=== PATIENT | male | born 1955 | race Caucasian/White ===

== ENCOUNTER → 2016-10-07 | Outpatient (CLI) | payer BC ==
--- NOTE | 2016-10-08 09:04 | RADIOLOGY REPORT (SQ) ---
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 TECHNIQUE: Multiplanar imaging includes non-contrasted T1, T2, FLAIR, diffusion with ADC map and pos t gadolinium contrast T1 sequences. Thin sections through the pituitary fossa pre and post contrast. Images stored on PACS. CONTRAST TYPE AND DOSE: 20 mL Multihance. RENAL FUNCTION: GFR > 60. LIMITATIONS: None. FINDINGS: ANATOMY: No developmental anomalies. Normal vascular flow voids. CSF SPACES: Normal in size and contour. No hemorrhage. PITUITARY FOSSA: Pituitary gland is 12 mm transverse x 15 mm AP x 6 mm craniocaudad. There is a smal l 4 mm cyst along the inferior aspect of the pituitary gland, anterior lobe, along the floor of the s jong best shown on sagittal T2 image 6. Posterior pituitary bright spot is identified. Midline infu ndibulum. On the post contrasted images, no discrete pituitary solid mass is identified. CEREBRUM: Sulci and gyri normal in size and contour. Normal white matter signal on FLAIR imaging. No evidence of hemorrhage, mass, or extraaxial fluid collection. No abnormal enhancement post contrast. POSTERIOR FOSSA: No signal alteration. No hemorrhage. No edema, masses, or mass effect. Internal aud itory canals, cerebello-pontine angles, mastoids normal. No enhancing lesions. ORBITS: No masses. Globes normal. PARANASAL SINUSES: There is mucous membrane thickening and fluid in the bilateral frontal sinuses and bilateral ethmoid sinuses. Mucus or serous retention cyst fills the left maxillary sinus OTHER: No other significant finding. IMPRESSION: Incidental finding of a 4 mm pituitary gland cyst of uncertain clinical significance. Bilateral frontal and ethmoid sinus inflammatory change Large mucus or serous retention cyst fills the left maxillary sinus TECHNICAL DOCUMENTATION: JOB ID: [id number]- All Rights Reserved
== END ==
LOC: RAD 18:16
PROVIDERS: ATTEND Physician Assistant
DX: E23.0 Hypopituitarism (principal)
CPT/HCPCS: 82565; 70553; A9577

== ENCOUNTER 2019-06-28 08:31 | Emergency (ER) | payer BC ==
[2019-06-28] MEDS ORDERED: ASPIRIN 81 MG TABLET, CHEWABLE PO ONE (09:01)
[2019-06-28 09:11] LABS: ABSOLUTE EOSINOPHILS # (AUTO) 0.1 10^3/uL (0.0-0.6); ABSOLUTE LYMPHOCYTES (AUTO) 1.4 10^3/uL (0.5-4.7); ABSOLUTE MONOCYTES (AUTO) 0.7 10^3/uL (0.1-1.4); ABSOLUTE NEUT (AUTO) 5.2 10^3/uL (1.7-8.2); BASOPHILS % (AUTO) 0.6 % (0-2); EOSINOPHILS % (AUTO) 1.3 % (0-6); HEMATOCRIT 47.2 % (37.9-51.0); HEMOGLOBIN 16.6 g/dL (13.5-17.0); LYMPHOCYTES % (AUTO) 19.3 % (13-45); MEAN CORPUSCULAR HEMOGLOBIN 31.8 pg (27.0-33.4); MEAN CORPUSCULAR HGB CONC 35.2 g/dL (32.0-36.0); MEAN CORPUSCULAR VOLUME 90 fl (80-97); MONOCYTES % (AUTO) 9.8 % (3-13); PLATELET COUNT 244 10^3/uL (150-450); RED BLOOD COUNT 5.23 10^6/uL (4.35-5.55); RED CELL DISTRIBUTION WIDTH 13.1 % (11.5-14.0); TOTAL CELLS COUNTED % (AUTO) 100 %; WHITE BLOOD COUNT 7.5 10^3/uL (4.0-10.5)
[2019-06-28 09:31] LABS: ALBUMIN 4.2 g/dL (3.5-5.0); ALKALINE PHOSPHATASE 49 U/L (38-126); ANION GAP 8 (5-19); ASPARTATE AMINO TRANSFERASE 26 U/L (17-59); BILIRUBIN,DIRECT 0.2 mg/dL (0.0-0.4); BILIRUBIN,TOTAL 0.6 mg/dL (0.2-1.3); BLOOD UREA NITROGEN 18 mg/dL (7-20); CALCIUM 9.3 mg/dL (8.4-10.2); CARBON DIOXIDE 28 mmol/L (22-30); CHLORIDE 102 mmol/L (98-107); CREATINE KINASE 121 U/L (55-170); GLUCOSE 132 mg/dL (75-110); POTASSIUM 4.2 mmol/L (3.6-5.0); TOTAL PROTEIN 7.1 g/dL (6.3-8.2)
[2019-06-28 09:40] LABS: CREATINE KINASE MB 2.23 ng/mL (<4.55)
--- NOTE | 2019-06-28 09:40 | ER Document Report ---
ED General - General Chief Complaint: Chest Pain Stated Complaint: CHEST PAIN Time Seen by Provider: 06/28/19 09:19 Primary Care Provider: TONY CATHERINE MD [Primary Care Provider] - Follow up as needed JOHANNE CALDWELL MD [ACTIVE STAFF] - Follow up as needed Mode of Arrival: Ambulatory Information source: Patient Notes: 63-year-old male presents to the emergency department with a complaint of chest discomfort pain left-sided radiating into his left shoulder region. States that he was in the bathroom brushing his teeth this morning when the symptoms began. He states the pain was about an 8/10 at that time. He denies diaphoresis, shortness of breath, dizziness or other associated pain. Risk factor of hypertension, male gender, he is not a smoker and is not diabetic there is no family history of coronary artery disease. Presently his pain is approximately 2/10 and he is comfortable. TRAVEL OUTSIDE OF THE [place] IN LAST 30 DAYS: No - Related Data Allergies/Adverse Reactions: No Known Allergies Allergy (Verified 07/04/12 03:39) Past Medical History - Social History Smoking Status: Never Smoker Frequency of alcohol use: None Family History: Reviewed & Not Pertinent Patient has suicidal ideation: No Patient has homicidal ideation: No - Past Medical History Cardiac Medical History: Reports: Hx Hypertension Past Surgical History: Reports: Hx Cholecystectomy - Immunizations Hx Diphtheria, Pertussis, Tetanus Vaccination: - unk Review of Systems - Review of Systems Notes: Constitutional: Negative for fever. HENT: Negative for sore throat. Eyes: Negative for visual changes. Cardiovascular:+ chest pain. Respiratory: Negative for shortness of breath. Gastrointestinal: Negative for abdominal pain, vomiting or diarrhea. Genitourinary: Negative for dysuria. Musculoskeletal: : Periscapular back pain. Skin: Negative for rash. Neurological: Negative for headaches, weakness or numbness. 10 point ROS negative except as marked above and in HPI. Physical Exam - Vital signs Vitals: Temp Pulse Resp BP Pulse Ox 97.9 F 99 18 177/93 H 95 06/28/19 08:41 06/28/19 08:41 06/28/19 08:41 06/28/19 08:41 06/28/19 08:41 - Notes Notes: PHYSICAL EXAMINATION: Physical Exam: General: Well-nourished well-developed 63-year-old man in no acute distress HEENT: NC/AT, pupils equal round and reactive to light, MM moist,nares clear, oropharynx clear, airway patent Neck: supple, no adenopathy, no masses. Good range of motion Lungs: clear, no wheezing, no rales no rhonchi CVS: Regular rate and rhythm no murmur gallop or rub Abdomen: Soft, active, nontender, no masses, no hepatosplenomegaly Back: Tenderness in the left thoracic midline back, periscapular region Ext: No edema, clubbing or cyanosis. Neuro: Alert and responsive, moving all 4 extremities on command, cranial nerves intact, no focal findings Skin: Intact no open lesions, no rash PSYCH: Normal mood, normal affect. Course - Re-evaluation Re-evalutation: 06/28/19 13:28 Patient's EKG revealed a right bundle branch block with no comparison EKG, chest pain no response to sublingual nitroglycerin and resolved without intervention. Patient was given aspirin, sublingual nitroglycerin without improvement, he states that he feels it may be muscular. Troponin x2 are negative. I discussed with the patient the need to have a cardiology follow-up and assessment for possible CAD. He is given Dr. Caldwell has information and told to arrange follow- up stress testing. I have noted to him that he could be seen tomorrow if he will let the office know that he was seen in the emergency department today. The patient states that he is going to his primary care doctor today and would l kavon to know if his primary doctor has a particular horse exerciser for him to use. - Vital Signs Vital signs: Temp Pulse Resp BP Pulse Ox 98.4 F 79 18 140/91 H 97 06/28/19 13:54 06/28/19 13:54 06/28/19 13:54 06/28/19 13:54 06/28/19 13:54 - Laboratory Result Diagrams: 06/28/19 08:58 06/28/19 08:58 Laboratory results interpreted by me: 06/28/19 08:58 Glucose 132 H - Diagnostic Test Radiology reviewed: Image reviewed, Reports reviewed - Chest x-ray: Blunting of the right costophrenic margin pressure marked pleural effusion - EKG Interpretation by Me EKG shows normal: Sinus rhythm - Right bundle branch block, rate 100 Discharge - Discharge Clinical Impression: Right bundle branch block (RBBB) Chest pain Qualifiers: Chest pain type: unspecified Qualified Code(s): R07.9 - Chest pain, unspecified Condition: Good Disposition: HOME, SELF-CARE Additional Instructions: You were diagnosed with nonspecific chest pain in the emergency department today. It is recommended that you follow-up with a horse exerciser for a stress test, echo and evaluation of the chest pain as an outpatient. You may call the horse exerciser whose name you were given as a referral Dr Caldwell) to schedule that appointment tomorrow, please let the office know you were seen in the emergency department today. If you are having increasing symptoms or other concerns you may return to the emergency department for further evaluation and treatment. Referrals: TONY CATHERINE MD [Primary Care Provider] - Follow up as needed JOHANNE CALDWELL MD [ACTIVE STAFF] - Follow up as needed
[2019-06-28 09:41] LABS: TROPONIN I < 0.012 ng/mL
[2019-06-28] MEDS ORDERED: NITROGLYCERIN 0.4 MG/TAB 25 TAB/BOTTLE SL PRN (09:41)
--- NOTE | 2019-06-28 09:42 | RADIOLOGY REPORT (SQ) ---
EXAM DESCRIPTION: CHEST 2 VIEWS COMPLETED DATE/TIME: 06/28/2019 9:25 am REASON FOR STUDY: cp COMPARISON: None. EXAM PARAMETERS: NUMBER OF VIEWS: Two views. TECHNIQUE: PA and lateral views of the chest were obtained.. RADIATION DOSE: NA LIMITATIONS: none FINDINGS: LUNGS AND PLEURA: The posterior right costophrenic sulcus is blunted. There is no pneumot horax. MEDIASTINUM AND HILAR STRUCTURES: No mediastinal or hilar contour abnormality. HEART AND VASCULAR STRUCTURES: The cardiac silhouette and pulmonary vasculature are within normal allen its. BONES: No acute findings. HARDWARE: None in the chest. OTHER: No other finding. IMPRESSION: Blunting of the posterior right costophrenic sulcus. The finding could represent a smal l pleural effusion. TECHNICAL DOCUMENTATION: JOB ID: [id number] 2010 [employer]- All Rights Reserved Reading location - IP/workstation name: [email or web address]
[2019-06-28] MEDS ORDERED: KETOROLAC TROMETHAMINE INJ/PF 30 MG/1 ML SDV IV ONE (11:28)
[2019-06-28 13:56] VITALS: BP 140/91
--- NOTE | 2019-06-28 18:14 | EKG REPORT ---
SEVERITY:- ABNORMAL ECG - SINUS TACHYCARDIA RIGHT BUNDLE BRANCH BLOCK : Confirmed by: Yusra Neal MD 28-Jun-2019 18:13:18
== END 2019-06-28 13:55 | disposition home or self-care (01) ==
LOC: ER 08:31
DX: R07.9 Chest pain, unspecified (principal); I45.10 Unspecified right bundle-branch block; I10 Essential (primary) hypertension; M54.9 Dorsalgia, unspecified
CPT/HCPCS: 36415; 71046; 80053; 82550; 82553; 84484; 85025; 93005; 93010; 99285